=== PATIENT | female | born 1965 | race Caucasian/White ===

== ENCOUNTER → 2023-06-11 | Outpatient (CLI) | payer OTHER, SELFPAY ==
--- NOTE | 2023-06-11 15:30 | CT_ITS ---
STUDY: CT CHEST WITHOUT CONTRAST REASON FOR EXAM: Female, 58 years old. ABN CHEST XRAY RADIATION DOSAGE (If Supplied By Facility): CTDIvol = ( 17.77 ) mGy, DLP = ( 626.27 ) mGycm TECHNIQUE: Transaxial imaging was performed without the administration of intravenous contrast material. Multiplanar coronal and sagittal images were reformatted. Individualized dose optimization techniques were used for this CT. COMPARISON: No relevant priors. FINDINGS: CHEST Scattered focal patchy areas of airspace disease in both lungs. This involves both the upper and lower lobes. It is more prominent in the lower lobes. There is a 1.4 cm nodule in the posterior medial segment of the left lower lobe as well as a 8.3 mm nodule in the posterior medial segment of the right lower lobe. There is no demonstrated pleural abnormality. Normal heart and pericardium. Normal mediastinum. Normal hilar regions. Normal unenhanced pulmonary arteries. Normal aorta arch and descending thoracic aorta. There are multi-level degenerative changes of the thoracic spine. Small hiatal hernia. Fatty filtration of the liver. CT/Chest without Contrast IMPRESSION: Bilateral patchy areas of airspace disease with focal nodular densities more prominent in the lower lobes as described. This may represent an inflammatory process. A neoplastic process cannot be excluded. Radiographic follow-up is recommended. Electronically Signed: Francois Syed MD at 15:52 EST ,
== END | disposition home or self-care (01) ==
LOC: CT 15:20
PROVIDERS: PCP Student in an Organized Health Care Education/Training Program; Referring Provider Student in an Organized Health Care Education/Training Program; Visit Provider Student in an Organized Health Care Education/Training Program
DX: R04.2 Hemoptysis (principal); R93.89 Abnormal findings on diagnostic imaging of other specified body structures
CPT/HCPCS: 71250

== ENCOUNTER → 2023-07-14 | Outpatient (CLI) | payer OTHER, SELFPAY ==
--- NOTE | 2023-07-15 12:30 | PFT ---
INTRODUCTION: The patient is a 58-year-old female who presents for pulmonary function studies secondary to a diagnosis of dyspnea. Respiratory therapy reported good patient effort. Bronchodilators were used during testing. INTERPRETATION: Forced expiration spirometry demonstrated no evidence of a large airways obstructive ventilatory defect. There was no significant response to aerosolized bronchodilators. Spirograms are of good quality and plateau normally. Body plethysmography was performed and revealed lung volumes to be within normal limits. Diffusing capacity by single breath CO was also within normal limits. IMPRESSION: Grossly normal pulmonary function studies.
== END | disposition home or self-care (01) ==
LOC: PSN 10:35
PROVIDERS: PCP Student in an Organized Health Care Education/Training Program; Referring Provider Internal Medicine Critical Care Medicine; Visit Provider Internal Medicine Critical Care Medicine
DX: R06.09 Other forms of dyspnea (principal)
CPT/HCPCS: 94060; 94726; 94729

== ENCOUNTER → 2023-08-04 | Outpatient (CLI) | payer OTHER, SELFPAY ==
--- NOTE | 2023-08-04 13:23 | CT_ITS ---
STUDY: CT CHEST WITHOUT CONTRAST REASON FOR EXAM: Female, 58 years old. Pulmonary nodules. Recent pneumonia. RADIATION DOSAGE (If Supplied By Facility): CTDIvol = ( 17.44 ) mGy, DLP = ( 601.40 ) mGycm TECHNIQUE: Transaxial imaging was performed without the administration of intravenous contrast material. Multiplanar coronal and sagittal images were reformatted. Individualized dose optimization techniques were used for this CT. COMPARISON: Comparison is made with prior study dated June 11, 2023. FINDINGS: CHEST The previously seen bilateral focal patches of airspace disease resolved. No pulmonary nodules are seen at this time. There is no demonstrated pleural abnormality. Normal heart and pericardium. Normal mediastinum. Normal hilar regions. Normal unenhanced pulmonary arteries. Normal aorta arch and descending thoracic aorta. There are mild degenerative changes of the thoracic spine. Fatty infiltration of the liver. Small hiatal hernia. CT/Chest without Contrast IMPRESSION: The previously seen focal areas of a focal airspace disease in both lungs have cleared. Electronically Signed: Francois Syed MD at 14:04 EST ,
--- OUTSIDE RECORDS SUMMARY | 2023-08-04 14:25 | XMS RPT_ITS | CCD ---
Author Name Unknown Address [id number] [place] [address] Organization [facility] Care Team Providers Care Washer Machine Name Role Phone Lizbeth Snow Unavailable Unavailable CRISTHIAN JEAN DO Primary Care Physician [phone] EDGARD GALARZA, TOMASZ Walker Attending Unatalib lable HALKO , CRISTHIAN Primary Care Unavailable HALKO DO, CRISTHIAN Primary Care Unavailable HALKO DO, CRISTHIAN Attending Unavailable HALKO DO, CRISTHIAN Primary Care Unavailable LAURA SMILEY MD Attending Unavaila ble HALKO DO, CRISTHIAN Attending Unavailable HALKO DO, CRISTHIAN Primary Care Unavailable HALKO DO, CRISTHIAN Primary Care Unavailable HALKO DO, CRISTHIAN Attending Unavailable LAURA SMILEY MD Attending Unavaila ble HALKO DO, CRISTHIAN Primary Care Unavailable HALKO DO, CRISTHIAN Attending Unavailable HALKO DO, CRISTHIAN Primary Care Unavailable EDGARD GALARZA, TOMASZ Walker Attending Rich lable HALKO , CRISTHIAN Primary Care Unavailable HALKO DO, CRISTHIAN Primary Care Unavailable LAURA SMILEY MD Attending Unavaila ble Allergies Allergy Classification Reported Allergen(s) Allergy Type Date of Onset Reaction(s) Facility (5 sources) metFORMIN; Translations: [metformin] Drug Allergy Severe diarrhea (finding) [facility] (2 sources) Moderna COVID-19 Vaccine PF; Translations: [SARS-CoV-2 (COVID-19) mRNA-1273 vaccine] Drug allergy stye, psoriasis [facility] Medications Current Medications Medication Drug Class(es) Dates Sig (Normalized) Sig (Original) acetaminophen 500 mg oral tablet (5 sources) Start: 12-10-2020 acetaminophen 500 mg oral tablet Dose : 1,000 mg = 2 tab(s), Oral, TID, PRN pain or fever, 0 Refill(s) Start Date: 12/10/20 Status: Ordered bisoprolol fumarate 5 mg oral tablet (5 sources) beta-Adrenergic Hannah Start: 03-10-2022 End: 03-06-2023 bisoprolol 5 mg oral tablet Dose : 5 mg = 1 tab(s), Oral, qDay, # 90 tab(s), 1 Refill(s), [id number] 169.5, cm, 09/07/22 10:23:00 EDT, Height, kg, 09/07/22 10:23:00 EDT, Dosing Weight Start Date: 09/07/22 Stop Date: 03/06/23 Status: Ordered Completed/Discontinued Medications Medication Drug Class(es) Dates Sig (Normalized) Sig (Original) cholecalciferol 1.25 mg oral capsule (5 sources) Vitamin D Start: 02-04-2022 End: 08-03-2022 cholecalciferol 1250 mcg (50,000 intl units) oral capsule Dose : 50,000 International_Unit = 1 cap(s), Oral, qWeek, # 13 cap(s), 1 Refill(s), Pharmacy: [facility]/pharmacy #[id number], 169, cm, 01/01/22 11:26:00 EDT, Height, kg, 01/01/22 11:20:00 EDT, Dosing Weight Start Date: 02/04/22 Stop Date: 08/03/22 Status: Ordered Problems Active Problems Problem Classification Problem Date Documented Date Episodic/Chronic Anxiety disorders (5 sources) Anxiety 10-14-2017 Chronic Blindness and vision defects (5 sources) Blurring of visual image 07-31-2020 Episodi c Cancer of breast (7 sources) Intraductal carcinoma in situ of breast; Translations: [Intraductal carcinoma in situ of left breast] Onset: 3 01-22-2021 Chronic Cancer of breast (3 sources) History of ductal carcinoma in situ of breast; Translations: [History of malignant neoplasm of breast] 09-24-2021 Episodic Deficiency and other anemia (5 sources) Anemia 01-22-2021 Episodic Diabetes mellitus without complication (8 sources) Diabetes mellitus; Translations: [Type 2 diabetes mellitus] Onset: 3 08-07-2019 Chronic Disorders of lipid metabolism (5 sources) Mixed hyperlipidemia 08-07-2019 Chronic Esophageal disorders (6 sources) Gastroesophageal reflux disease 03-20-2014 Chronic Essential hypertension (5 sources) Hypertensive disorder 10-14-2017 Chronic Inflammation; infection of eye (except that caused by tuberculosis or sexually transmitteddisease) (2 sources) External hordeolum 12-26-2021 Episodic Malaise and fatigue (5 sources) Fatigue 07-31-2019 Episodic Nonmalignant breast conditions (5 sources) Microcalcifications of the breast 11-20-2020 Episodic Nutritional deficiencies (7 sources) Vitamin D deficiency; Translations: [Vitamin D deficiency, unspecified] Onset: 3 08-07-2019 Chronic Other aftercare (5 sources) Surgical follow-up 01-08-2021 Episodic Other bone disease and musculoskeletal deformities (5 sources) Osteopenia 11-13-2020 Episodic Other bone disease and musculoskeletal deformities (5 sources) Somatic dysfunction of lower limb 02-20-2020 Episodic Other bone disease and musculoskeletal deformities (5 sources) Somatic dysfunction of lumbar region 02-20-2020 Episodic Other bone disease and musculoskeletal deformities (5 sources) Somatic dysfunction of pelvic region 02-20-2020 Episodic Other bone disease and musculoskeletal deformities (5 sources) Somatic dysfunction of sacral region 02-20-2020 Episodic Other connective tissue disease (1 source) Achilles tendinitis 09-07-2022 Episodic Other connective tissue disease (1 source) Enthesitis 09-07-2022 Episodic Other inflammatory condition of skin (2 sources) Psoriasis 03-26-2022 Chronic Other injuries and conditions due to external causes (1 source) At low risk for fall 10-22-2021 Episodic Other lower respiratory disease (5 sources) Snoring 07-31-2019 Episodic Other nutritional; endocrine; and metabolic disorders (3 sources) Body mass index 30+ - obesity 10-30-2020 Chronic Other nutritional; endocrine; and metabolic disorders (5 sources) Morbid obesity 07-31-2019 Chronic Other nutritional; endocrine; and metabolic disorders (2 sources) Body mass index 40+ - severely obese 10-22-2021 Chronic Other nutritional; endocrine; and metabolic disorders (1 source) Metabolic syndrome X 09-07-2022 Chronic Other screening for suspected conditions (not mental disorders or infectious disease) (3 sources) Viral screening status 02-05-2021 Episodic Other skin disorders (5 sources) Eruption 11-14-2019 Episodic Other upper respiratory disease (5 sources) Seasonal allergic rhinitis 03-20-2014 Chronic Other upper respiratory disease (1 source) Bleeding from nose 09-07-2022 Episodic Residual codes; unclassified (5 sources) Hypersomnia 07-31-2019 Chronic Residual codes; unclassified (5 sources) Family history of cancer of colon 11-10-2018 Episodic Residual codes; unclassified (5 sources) Flushing 02-05-2021 Episodic Residual codes; unclassified (5 sources) Immunization due 08-15-2019 Episodic Residual codes; unclassified (5 sources) Postmenopausal state 10-30-2020 Episodic Residual codes; unclassified (1 source) Family history of breast cancer 09-11-2022 Episodic Screening and history of mental health and substance abuse codes (1 source) Tobacco use and exposure - finding 09-07-2022 Chronic Spondylosis; intervertebral disc disorders; other back problems (5 sources) Lumbago with sciatica 02-20-2020 Episodic Unclassified (1 source) Unknown / UNK(Unknown) Onset: 8 Unclassified (5 sources) Cancer cervix screening status 08-15-2019 Unclassified (20 sources) Patient encounter status 07-31-2019 Viral infection (5 sources) Disease caused by 2019-nCoV 05-31-2020 Past or Other Problems Problem Classification Problem Date Documented Da te Episodic/Chronic Unclassified (1 source) RED,BLISTERY PAINFUL RASH ON RT SIDE Onset: 10-16-2017 Results Test Name Value Interpretation Reference Range Facil ity Encounters Encounter Date Encounter Type Care Provider Facility Start: 06-11-2023 ambulatory CRISTHIAN Cortes ty:B Start: 06-10-2023 End: 06-11-2023 ambulatory CRISTHIAN JEAN DO Facility:B Start: 03-31-2023 End: 04-01-2023 ambulatory TOMASZ RENE APRN-RESISTOR WINDER Facility:A Start: 03-30-2023 End: 03-31-2023 ambulatory LAURA SMILEY MD Facility:B Start: 03-29-2023 ambulatory CRISTHIAN Cortes ty:B Start: 12-17-2022 End: 12-18-2022 ambulatory CRISTHIAN JEAN DO Facility:A Start: 09-28-2022 End: 09-29-2022 ambulatory TOMASZ R EDGARD [employer]OR[employer]-RESISTOR [employer] Facility:A Start: 09-28-2022 End: 09-28-2022 Patient encounter procedure TOMASZ RENE [employer]OR[employer]-RESISTOR [employer] [facility] Start: 09-07-2022 End: 09-12-2022 ambulatory CRISTHIAN JEAN DO Facility:B Start: 03-27-2022 End: 03-27-2022 Patient encounter procedure 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[employer] [facility] Start: 08-21-2021 End: 08-21-2021 Patient encounter procedure CRISTHIAN JEAN DO [facility] Start: 08-06-2021 End: 08-06-2021 Patient encounter procedure CRISTHIAN JEAN DO [facility] Start: 04-30-2021 End: 04-30-[address] ADRY PETER MD [facility] Start: 10-16-2017 Ambulatory [facility] Facility :[facility] Procedures Date Procedure Procedure Detail Performing Clinician Start: 12-27-2020 Lumpectomy of left breast 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 Start: 11-10-[address] BILLIE PETER MD Immunizations Immunization Date Immunization Notes Care Provider [facility] 10-22-2021 zoster vaccine recombinant; Translations: [Shingrix] 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 [facility] 07-15-2021 SARS-CoV-2 (COVID-19 ) [id number] vaccine CRISTHIAN JEAN DO [facility] Payers Date Payer Category Payer Unknown [id number] 1965 Unknown [id number] 2.16.8 [id number] 1965 Unknown [id number] 2.16.8 [id number] 1965 Unknown [id number] 2.16.8 [id number] 1965 Unknown [id number] 2.16.8 [id number] 1965 Unknown [id number] 2.16.8 [id number] 1965 Unknown [id number] 2.16.8 [id number] 1965 Unknown [id number] 2.16.8 [id number]. 1965 Unknown [id number] 2.16.8 [id number] 1965 Unknown [id number] 2.16.8 [id number] Social History Date Type Detail Facility Start: 11-10-2018 Never smoked t obacco (finding) [facility] Sex Assigned At [facility] Medical Equipment Procedure Code Equipment Code Equipment Origin al Text Equipment Identifier Dates Blood Glucose Te st Strips Start: 11-13-[address]ps Start: 09-16-2020 Lancets Start: 08-15-[address]ps Start: 11-13-[address] Strips Start: 09-16-2020 Lancets Start: 08-15-[address]ps Start: 11-13-[address] Strips Start: 09-16-2020 Lancets Start: 08-15-2019 See Instructions , Dx E11.9; dispense 100 strips, test daily, 3 refills, # 100 EA, 3 Refill(s), [id number], 168.5, cm, 10/30/20 16:30:00 EDT, Height, 110.7, kg, 10/30/20 16:30:00 EDT, Dosing Weight Start: 11-13-2020 See Instructions , test BGT 1x/day; dispense 50 for 30 day supply, 0 refills; dx E11.9, # 50 EA, 0 Refill(s), [id number], 167, cm, 05/31/20 16:15:00 EST, Height, 109.8, kg, 07/31/20 16:27:00 EST, Dosing Weight Start: 09-16-2020 See Instructions , test BGT 1x/day; dispense 50 for 30 day supply, 11 refills; dx E11.9, # 1 EA, 11 Refill(s), [id number], 169, cm, 08/15/19 14:27:00 EST, Height, 118.3, kg, 08/15/19 14:27:00 EST, Dosing Weight Start: 08-15-2019 See Instructions , Dx E11.9; dispense 100 strips, test daily, 3 refills, # 100 EA, 3 Refill(s), [id number], 169.5, cm, 09/07/22 10:23:00 EDT, Height, 115.2, kg, 09/07/22 10:23:00 EDT, Dosing Weight Start: 09-07-2022 See Instructions , test BGT 1x/day; dispense 50 for 30 day supply, 11 refills; dx E11.9, # 1 EA, 11 Refill(s), Pharmacy: [facility] #[id number], 169, cm, 08/15/19 14:27:00 EST, Height, 118.3, kg, 08/15/19 14:27:00 EST, Dosing Weight Start: 08-15-2019 Progress note 09-02-2021 Note Date & Type Note Facility 09-02-2021 Note HNO ID: [id number] Author: Dimas Carlson, DO Service: ? Author Type: Physician Type: Progress Notes Filed: 09/02/2021 2:50 PM Note Text: Patient referred by Dr. Jean for history of DCIS. The impression and plan will be communicated by way of the shared electronic record or faxed under separate cover letter. HPI: The patient is a 56-year-old female who has a past medical history significant for diabetes, hypertension, vit D deficiency, anxiety, GERD, obesity and hyperlipidemia. Found to have a left breast abnormality on screening mammogram 10/2020. Biopsy 11/27/2020. Underwent a lumpectomy on 12/27/2020 for DCIS. Pathology: Specimen measured 1.1 cm as measured on glass slide. DCIS was observed with some apocrine features. Nuclear grade was 3. Necrosis was present. Closest margin was 1 mm. ER was negative (less than 1%) and NV was negative (0). Received adjuvant radiation to 5256 cGy in 21 fx completed 03/28/2021. Several weeks ago she appreciated a small lump and some tenderness medial to the surgical site. She underwent evaluation which included a diagnostic mammogram performed on 08/21/2021. That study demonstrated postoperative and radiation changes in the left breast with no mass, calcification or other concerning findings. An ultrasound was performed that also revealed no significant sonographic findings to correlate with the palpable abnormality. Return to annual mammographic surveillance was recommended. She continues to have some tenderness in that area but the lump is not as prominent as it was. He has no other concerns. She feels well in general. PMH, medications and allergies personally reviewed by me today. Any changes documented in appropriate section. ROS: Constitutional: Denies episodes of fever and night sweats. Not significantly fatigued. Normal appetite. Neuro: Denies GALLEGOS, vertigo, dizziness and imbalance. Denies symptoms of neuropathy. HEENT: No recent change in voice, vision or hearing. Resp: Denies cough, wheeze and hemoptysis. Denies shortness of breath at rest. Denies WANG. CVS: Denies exertional chest pain, PND, orthopnea and LE edema. GI: Denies dysgeusia. Denies symptoms of stomatitis. Denies dysphagia and odynophagia. Denies reflux, n/v, change in bowel habits and abdominal pain. : Denies dysuria or gross hematuria. No symptoms of bladder outlet obstruction. Endo: Denies hot flashes. Denies polyuria and polydipsia. Denies heat and cold intolerance. Musculoskeletal: Denies bone, back, joint and muscular pain. Derm: Denies rash. Denies jaundice and diffuse pruritis. Heme: Denies unusual bleeding and unexplained bruising. Psych: Normal mood. PHYSICAL EXAM: Vitals: Blood pressure 133/61, pulse 65, temperature 36.3 ?C (97.4 ?F), temperature source Temporal, height 165.7 cm (5' 5.25 ), weight 110.7 kg (244 lb). Well-appearing and in no acute distress. EYES: Sclerae are anicteric bilaterally. LYMPHATIC: There is no palpable cervical, supraclavicular or axillary adenopathy. RESPIRATORY: Inspiratory breath sounds are of normal intensity in all laureano. No rales, wheezes or rhonchi. CARDIOVASCULAR: Rhythm is regular. 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 Right breast exam normal. Left breast appears somewhat contracted from radiation. There is mild skin swelling/edema of the lower dependent portion of the breast. There is a well-healed curvilinear incision on the inferior aspect of the areola. There is an area of tenderness without distinct lump just medial to the surgical site. ABDOMEN: The abdomen is nondistended. No organomegaly. No tenderness. Extremities: No swelling or edema. SKIN: No jaundice or rash. 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 Closest margin was 1 mm. She completed adjuvant radiation. Disease was ER/NV negative. -Recent palpable lump in the breast which is somewhat tender. Diagnostic mammogram and ultrasound unrevealing. -She was provided a survivorship care plan by [facility]. Plan -Advised her to follow-up with Dr. Peter at least one time for this concern. -Office visit in 6 months. -For now we will plan annual screening mammogram. I spent a total of 50 minutes on the date of the service which included preparing to see the patient, [id number] patient care, completing clinical documentation, obtaining and/or reviewing separately obtained history, performing a medically appropriate examination, counseling and educating the patient/family/caregiver, independently interpreting results (not separately reported) and communicating results to the patient/family/caregiver. Dimas Carlson DO [facility] Evaluation + Plan note LaboratoryRadiology Note Date & Type Note Facility Evaluation + Plan note Future Appointments Appointment Date:08/06/2021 08:30:00 AM Scheduled Provider:CRISTHIAN JEAN DO Location:[facility] Appointment Type:PC OV Appointment Date:08/27/2021 01:30:00 PM Scheduled Provider:ADRY PETER JR, MD Location: [facility] Appointment Type: OV Check Up Future Scheduled Tests.Coronavirus 2019 05/07/20.Coronavirus 2019 05/06/20yroid Stimulating Hormone 08/08/21A1C Hemoglobin 08/08/21Complete Blood Count 08/08/21Lipid Profile 08/08/21Hepatitis C Antibody IgG 02/05/21Vitamin D Level 08/08/21Complete Metabolic Panel 08/08/21US Biopsy Breast Left 1st Lesion 11/27/20MA Breast Ndl Loc Place Left 1st Lesion 12/11/20MA Breast Ndl Loc Place Right 1st Lesion 12/04/20MA Mammo Screening Bilateral w/ Juan 10/30/20 [facility] Evaluation + Plan note LaboratoryRadiology Note Date & Type Note Facility Evaluation + Plan note Future Appointments Appointment Date:08/21/2021 08:30:00 AM Scheduled Provider: Location:[facility] Appointment Type:MA Mammogram Diagnostic Bilateral w/ Amos Appointment Date:08/21/2021 09:00:00 AM Scheduled Provider: Location:[facility] Appointment Type:US Breast Left Complete Appointment Date:08/27/2021 01:30:00 PM Scheduled Provider:ADRY PETER JR, MD Location:[facility] Appointment Type: OV Check Up Appointment Date:10/22/2021 11:00:00 AM Scheduled Provider:CRISTHIAN JEAN DO Location:[facility] Appointment Type:PC OV Future Scheduled TestsThyroid Stimulating Hormone 08/08/21Complete Blood Count 08/08/21Lipid Profile 08/08/21Hepatitis C Antibody IgG 02/05/21Vitamin D Level 08/08/21Complete Metabolic Panel 22US Biopsy Breast Left 1st Lesion 11/27/20US Breast Left Complete 322MA Breast Ndl Loc Place Left 1st Lesion 12/11/20MA Breast Ndl Loc Place Right 1st Lesion 12/04/20MA Mammo Diagnostic Bilateral w/Juan 3MA Mammo Screening Bilateral w/ Juan 10/30/20 [facility] Evaluation + Plan note LaboratoryRadiology Note Date & Type Note Facility Evaluation + Plan note Future Appointments Appointment Date:08/27/2021 01:30:00 PM Scheduled Provider:ADRY PETER JR, MD Location:[facility] Appointment Type: OV Check Up Appointment Date:10/22/2021 11:00:00 AM Scheduled Provider:CRISTHIAN JEAN DO Location:[facility] Appointment Type:PC OV Future Scheduled TestsThyroid Stimulating Hormone 08/08/21Complete Blood Count 08/08/21Lipid Profile 08/08/21Hepatitis C Antibody IgG 02/05/21Vitamin D Level 08/08/21Complete Metabolic Panel 08/08/21US Biopsy Breast Left 1st Lesion 6MA Breast Ndl Loc Place Left 1st Lesion 12/11/20MA Breast Ndl Loc Place Right 1st Lesion 12/04/20MA Mammo Screening Bilateral w/ Juan 10/30/20 [facility] Evaluation + Plan note Laboratory Note Date & Type Note Facility Evaluation + Plan note Future Appointments Appointment Date:04/01/2022 01:30:00 PM Scheduled Provider:ADRY PETER JR, MD Location:[facility] Appointment Type:GS OV Appointment Date:04/24/2022 11:00:00 AM Scheduled Provider:CRISTHIAN JEAN DO Location:[facility] Appointment Type:PC OV Appointment Date:08/18/2022 08:30:00 AM Scheduled Provider:CRISTHIAN JEAN DO Location:[facility] Appointment Type:PC Wellness Annual Future Scheduled TestsThyroid Stimulating Hormone 10/22/21Thyroid Stimulating Hormone 08/08/21A1C Hemoglobin 10/22/21Complete Blood Count 10/22/21Complete Blood Count 08/08/21Lipid Profile 10/22/21Lipid Profile 08/08/21Microalbumin Level Urine 10/22/21Vitamin D Level 08/08/21Complete Metabolic Panel 10/22/21Complete Metabolic Panel 08/08/21 [facility] Evaluation + Plan note Radiology Note Date & Type Note Facility Evaluation + Plan note Future Appointments Appointment Date:10/21/2022 10:45:00 AM Scheduled Provider:ADRY PETER JR, MD Location:[facility] Appointment Type:GS OV Appointment Date:03/04/2023 10:30:00 AM Scheduled Provider:CRISTHIAN JEAN DO Location:[facility] Appointment Type:PC OV Appointment Date:03/31/2023 02:30:00 PM Scheduled Provider: Location:[facility] Appointment Type:MA Mammogram Diagnostic Bilateral w/ Amos Appointment Date:03/31/2023 03:00:00 PM Scheduled Provider:TOMASZ RENE Location:[facility] Appointment Type:BS OV Follow Up w/ Imaging Future Scheduled TestsMA Mammo Diagnostic Bilateral w/Juan 03/31/23 [facility] Hospital course Narrative Note Date & Type Note Facility Hospital course Narrative No data available for this section [facility] Hospital Discharge instructions Note Date & Type Note Facility Hospital Discharge instructions No data available for this section [facility] Progress note Note Date & Type Note Facility Progress note No data available for this section [facility] Summary Purpose Family History No Family History Records FoundNo Family History Records FoundNo Family History Records FoundNo Family History Records Found Advance Directives No Advanced Directives Records FoundNo Advanced Directives Records FoundNo Advanced Directives Records FoundNo Advanced Directives Records Found Additional Source Comments INFORMATION SOURCE (unrecogn ized section and content) DATE CREATED AUTHOR AUTHOR'S ORGANIZ ATION 05/09/2020 [facility] DATE CREATED AUTHOR AUTHOR'S ORGANIZ ATION 09/12/2021 [facility] DATE CREATED AUTHOR AUTHOR'S ORGANIZ ATION 06/12/2023 [facility] Care Team (unrecognized sect ion and content) Care Team Personnel Name: CRISTHIAN JEAN DO Position: P4 Physician - Primary Care Med Service: Active Provider Member Role: Primary Care Physician Address: Address: [address] [place] [address] Care Team Related Persons Name: TAYLA ADEN Patient Care team informatio n (unrecognized section and content) Care Team Personnel Name: KARRILORENZOCRISTHIAN DO Position: P4 Physician - Primary Care Member Role: Primary Care Physician Address: Address: [address] [place] [address] Care Team Related Persons Name: TAYLA ADEN FOR RECORDS PERTAINING TO PATIENTS WHO ARE OR HAVE BEEN ENROLLED IN A CHEMICAL DEPENDENCY/SUBSTANCEABUSE PROGRAM, SOME INFORMATION MAY BE OMITTED. This clinical summary was aggregated from multiple sources. Caution should be exercised in using it in the provision of clinical care. This summary normalizes information from multiple sources, and as a consequence, information in this document may materially change the coding, format and clinical context of patient data. In addition, data may be omitted in some cases. CLINICAL DECISIONS SHOULD BE BASED ON THE PRIMARY CLINICAL RECORDS. [facility] [employer] provides no warranty or guarantee of the accuracy or completeness of information in this document.
== END | disposition home or self-care (01) ==
LOC: CT 13:22
PROVIDERS: PCP Student in an Organized Health Care Education/Training Program; Referring Provider Nurse Practitioner Acute Care; Visit Provider Nurse Practitioner Acute Care
DX: R91.8 Other nonspecific abnormal finding of lung field (principal)
CPT/HCPCS: 71250

== ENCOUNTER → 2024-05-31 | Outpatient (CLI) | payer BC, SELFPAY ==
--- NOTE | 2024-05-31 14:18 | RAD_ITS ---
HISTORY: PAIN. TECHNIQUE: XR Pelvis 1 or 2 Views. COMPARISON: None. FINDINGS: OSSEOUS STRUCTURES: No acute displaced fracture identified. Note that overlapping bowel shadows may obscure osseous detail. Mineralization unremarkable. JOINT SPACES: No dislocation. Mild degenerative changes. RAD/Pelvis 1 or 2 Views IMPRESSION: No acute displaced fracture or dislocation identified. Electronically Signed: Terese Cedeño MD at 8:36 EST ,
[2024-05-31 17:47] LABS: Absolute Lymphocyte Count 1.99 X10^3/uL (0.83-4.51); Absolute Neutrophil Count 4.4 X10^3/uL (2.0-7.7); Basophil# 0.06 X10^3/uL; Basophil% 0.8 % (0-1); Eosinophil# 0.12 X10^3/uL; Eosinophils% 1.7 % (0-5); Hematocrit 43.6 % (37-47); Hemoglobin 14.2 g/dL (12.0-15.0); Lymphocyte # 1.99 X10^3/ul (0.83-4.51); Lymphocyte % 28.1 % (19-41); Mean Corp Hgb Conc 32.6 g/dL (32-36); Mean Corpuscular Hgb 28.3 pg (27.0-32.0); Monocyte# 0.52 X10^3/uL; Monocyte% 7.3 % (0-10); NRBC Flagged by Analyzer 0 % (0-5); Neutrophil # 4.38 X10^3/uL (2.7-7.7); Platelet Count 131 K/mm3 (150-450); RBC Distribution Width SD 40.6 fl (35.1-43.9); Red Blood Count 5.01 M/mm3 (4.2-5.4); White Blood Count 7.1 K/mm3 (4.4-11.0)
[2024-05-31 17:58] LABS: Erythrocyte Sedimentation Rate 8 mm/hr (0-30)
[2024-05-31 18:25] LABS: ALB/GLOB Ratio 1.3 RATIO (0.9-2.4); AST(SGOT) 24 U/L (15-37); Alanine Aminotransfer ALT/SGPT 35 U/L (13-56); Alkaline Phosphatase 125 U/L (45-117); Anion Gap 5 (5-15); BUN 15 mg/dL (7-18); BUN/Creat Ratio 21.8 RATIO (10-20); CRP 5.35 mg/L (0.0-3.0); Calcium,Total 9.6 mg/dL (8.5-10.1); Chloride 106 mmol/L (98-107); Creatinine, Serum 0.69 mg/dL (0.55-1.02); EST Glomerular Filtration Rate 93 mL/min (>60); Est Glom Filt Rate - Afr Amer 112 mL/min (>60); Globulin 3.1 g/dL (2.2-4.2); Glucose 84 mg/dL (74-106); Protein, Total 7.1 g/dL (6.4-8.2); Rheumatoid Factor < 10.0 IU/mL (<15); Sodium Level 138 mmol/L (136-145)
[2024-05-31 23:38] LABS: Hepatitis B Surface Antibody Non-Reactive; Hepatitis B Surface Antigen Non-Reactive (Nonreactive); Hepatitis C Antibody Non-Reactive (Nonreactive)
[2024-06-05 09:22] LABS: CCP IgG Antibodies 1 units (0-19)
== END | disposition home or self-care (01) ==
LOC: MTLAB 14:12
PROVIDERS: PCP Student in an Organized Health Care Education/Training Program; Referring Provider Internal Medicine Rheumatology; Visit Provider Internal Medicine Rheumatology
DX: M06.4 Inflammatory polyarthropathy (principal); M47.892 Other spondylosis, cervical region; L40.8 Other psoriasis; R10.2 Pelvic and perineal pain
CPT/HCPCS: 36415; 72170; 80053; 85025; 85652; 86140; 86200; 86431; 86706; 86803; 87340

== ENCOUNTER → 2024-09-13 | Outpatient (CLI) | payer BC, SELFPAY ==
[2024-09-16 16:08] LABS: G6PD Quant Test 301 (127-427); Red Blood Cell Count Test/G6PD 5.02 x10E6/uL (3.77-5.28)
== END | disposition home or self-care (01) ==
LOC: MTLAB 14:40
PROVIDERS: PCP Student in an Organized Health Care Education/Training Program; Referring Provider Internal Medicine Rheumatology; Visit Provider Internal Medicine Rheumatology
DX: L40.59 Other psoriatic arthropathy (principal); L40.8 Other psoriasis; M47.892 Other spondylosis, cervical region; Z79.899 Other long term (current) drug therapy
CPT/HCPCS: 36415; 82955

== ENCOUNTER → 2025-02-07 | Outpatient (CLI) | payer BC, SELFPAY ==
[2025-02-07 18:33] LABS: Vitamin D,25 Hydroxy 78.5 ng/mL (30-100)
[2025-02-07 18:56] LABS: PTHIN 55 pg/mL (11-61)
== END | disposition home or self-care (01) ==
LOC: MTLAB 15:48
PROVIDERS: PCP Student in an Organized Health Care Education/Training Program; Referring Provider Internal Medicine Rheumatology; Visit Provider Internal Medicine Rheumatology
DX: L40.59 Other psoriatic arthropathy (principal); L40.8 Other psoriasis; M47.892 Other spondylosis, cervical region; Z79.899 Other long term (current) drug therapy
CPT/HCPCS: 36415; 82306; 83970